=== PATIENT | female | born 2000 | race Caucasian/White ===

== ENCOUNTER → 2024-03-19 08:22 | Outpatient (REF) | payer OTHER, SELFPAY | LOC: HWRAD 08:22 | PROVIDERS: ATTENDING PHYSICIAN Obstetrics & Gynecology; FAMILY PHYSICIAN Family Medicine | DX: N83.209 Unspecified ovarian cyst, unspecified side (principal) | CPT/HCPCS: 76830; 76856 ==

== ENCOUNTER → 2024-04-24 09:47 | Outpatient (REF) | payer OTHER, SELFPAY | LOC: PAVMRI 09:47 | PROVIDERS: ATTENDING PHYSICIAN Obstetrics & Gynecology; FAMILY PHYSICIAN Family Medicine | DX: Q52.4 Other congenital malformations of vagina (principal) | CPT/HCPCS: 72197; A9575 ==